=== PATIENT | female | born 1940 | race Caucasian/White ===

== ENCOUNTER 2019-08-27 09:03 | Observation (INO) ==
[2019-08-27] MEDS ORDERED: IOPAMIDOL 100 ML BOTTLE IV ONE (09:04)
[2019-08-27] MEDS ORDERED: LIDOCAINE 1% 20 ML VIAL SQ ONE (09:04)
[2019-08-27] MEDS ORDERED: IPRATROPIUM/ALBUTEROL 3 ML AMPUL.NEB NEB ONE ×2 (09:14→09:46)
--- NOTE | 2019-08-27 09:46 | Emergency Department Note ---
SOB HPI - General Chief Complaint: Shortness of Breath/Dyspnea Stated Complaint: shortness of breath Time Seen by Provider: 08/27/19 09:27 Source: patient Mode of arrival: EMS Limitations: no limitations - History of Present Illness 79-year-old female patient presents emergency complaint of ongoing and severe shortness of breath. Patient tells me she has been suffering from breathing issues for the last month. She was with pneumonia versus COPD exacerbation. She was started on oral antibiotics and oral corticosteroids. A review of her recent primary care note on 08/20 indicates that she was improving. Her primary care provider continued her on her nebulizer, antibiotics, and steroids. Unfortunately, she worsened and was seen in [facility]'s emergency department on 08/24. During that time she was again diagnosed COPD exacerbation with potential ongoing pneumonia. She was restarted on azithromycin and continued on corticosteroids. Today, she was undergoing a pulmonary function test and was referred down to the emergency department when she was unable to form this. She tells me her breathing is "not good" but unchanged. She has a [id number] history of smoking but tells me "I have not smoked in days". She denies systemic fever, sweats, chills. She denies/congestion runny nose. She admits to productive cough producing "white" colored sputum. She describes her dyspnea is worsening with any form of activity. Currently, resting on the emergency room gurney, she is breathing "okay". She denies retrosternal chest pain or palpitations. She d enies abdominal pain, nausea, vomiting, or diarrhea. She denies lower extremity edema. She denies PND or orthopnea. She denies focal weakness. A review of her active problems shows the following: Blepharitis, gastritis, elbow strain, lumbar strain, UTI, left epicondylitis, left shoulder impingement, right hip arthralgia, chronic tobacco use, essential hypertension, hyperlipidemia. - Related Data Home Medications Medication Instructions Recorded Confirmed Azithromycin 500 mg PO DAILY 08/27/19 08/27/19 predniSONE [Prednisone] 10 mg PO [facility] 08/27/19 08/27/19 tiZANidine [Zanaflex] 4 mg PO TID PRN 08/27/19 08/27/19 Previous Rx's Medication Instructions Recorded diltiazem HCl 120 mg 120 mg PO QDAY PRN #30 cap 02/10/19 capsule,extended release 24 hr albuterol sulfate 90 mcg/actuation See Rx Instructions .ROUTE 03/30/19 aerosol inhaler .COMPLEX #18 gram omeprazole 20 mg capsule,delayed 20 mg PO QDAY #90 cap 04/30/19 release ramipril 10 mg capsule 10 mg PO QDAY #90 cap 07/30/19 albuterol sulfate 2.5 mg/3 mL 2.5 mg INHALATION Q4H PRN #90 ml 08/17/19 (0.083 %) solution for nebulization nebulizer accessories See Rx Instructions .ROUTE 08/17/19 .MEDSUPPLY #1 each nebulizer and compressor See Rx Instructions .ROUTE 08/17/19 .MEDSUPPLY #1 each hydrocodone 10 mg-acetaminophen 1 tab PO QID #112 tab 08/24/19 325 mg tablet Wheelchair #1 ea 08/25/19 Allergies Allergy/AdvReac Type Severity Reaction Status Date / Time hydrochlorothiazide Allergy Intermediate Palpitation Verified 08/20/19 15:11 s atorvastatin [From Lipitor] AdvReac Intermediate Cramping Verified 08/20/19 15:11 of the Muscles ezetimibe [From Vytorin] AdvReac Intermediate Cramping Verified 08/20/19 15:11 of the Muscles Penicillins AdvReac Intermediate Anxiety Verified 08/20/19 15:11 simvastatin [From Vytorin] AdvReac Intermediate Cramping Verified 08/20/19 15:11 of the Muscles potassium AdvReac Mild Unknown Verified 08/20/19 15:11 prednisone AdvReac Mild Unknown Verified 08/20/19 15:11 Tizanidine AdvReac Mild cramping Verified 08/20/19 15:14 in hands in feet Review of Systems All systems ED: reviewed and negative except as stated. 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 Absent: scleral icterus, conjunctival injection ENT: Present: normal oropharynx, mucous membranes moist Neck: Present: trachea midline. Absent: lymphadenopathy, thyromegaly Chest: Present: symmetric chest wall rise Respiratory: Present: accessory muscle use, prolonged expiratory phase, decreased breath sounds. Absent: respiratory distress, rales/crackles, wheezes, stridor Cardiovascular: Present: regular rate, normal rhythm. Absent: systolic murmur, diastolic murmur Abdominal: Present: soft. Absent: distention, tenderness, guarding, rebound, rigidity, organomegaly, mass Extremities: Present: normal capillary refill. Absent: pedal edema, pretibial edema, calf tenderness Neurological: Present: alert, oriented X3 Psychiatric: Present: normal affect, normal mood Skin: Present: warm, dry. Absent: cyanosis Course Course Narrative: Patient was brought into the emergency department and a history and physical exam was performed. Laboratory studies were drawn. Patient was given DuoNeb treatment x1. Portable chest x-ray was ordered and reviewed. Radiologist read the x-ray as small bilateral pleural effusions there is a possible right hydropneumothorax. He recommended PA and lateral chest x-ray. Radiologist also mentioned bibasilar volume loss or infiltrate. Repeat chest exam did not show considerable air movement. Patient was given second DuoNeb treatment. A review of her laboratory studies show the following: CBC elevated WBC 16.8, granulocyte percent 94.1, granulocyte #15.8. Lactic acid 1.5. CMP elevated chloride 95, glucose 111, all others normal limits. Procalcitonin less than 0.10. Arterial blood gas did show pH 7.41, PCO2 43, PO2 62, HCO3 27.3. Repeat two-view chest x-ray showed small bilateral pleural effusions that are unchanged, cardiomegaly and probable pulmonary congestion, no acute pulmonary parenchymal infiltrate. Due to the patient's hypoxia and worsening respiratory status a chest CT was ordered and reviewed. Review of the CT scan report did show bilateral large pleural effusions. I discussed this case my collaborating physician (Dr. Galeas) who in turn discussed this with the radiologist. At this time patient will be set up for a ultrasound-guided thoracentesis. We will send this fluid down for laboratory studies including, culture, and cytology. Dr. Galeas went over the risks and benefits of the procedure with the patient. Patient consented to have the procedure done. Radiologist removed approximately 1.2 L of pleural fluid from the patient's chest. This was sent for culture, Gram stain, protein level, and cytology. After reviewing all the data I discussed the findings with the patient. She is needing further evaluation and work-up and likely needs hospitalized for these pleural effusions. There was a suspicious nodule found on the chest CT scan that needs further work-up. She verbalized understanding this. With this in mind, I contacted the hospitalist (Dr. Bettencourt) and explained the patient's condition to him. At this time Dr. Bettencourt has consented to receive the patient into the hospital. All further treatment decisions and modalities to be carried out by Dr. Bettencourt. Vital Signs Temperature 96.9 F L 08/27/19 09:04 Pulse Rate 88 08/27/19 09:04 Respiratory Rate 34 H 08/27/19 09:04 Blood Pressure 156/88 08/27/19 09:04 Pulse Oximetry (%) 94 08/27/19 09:04 Temperature 96.9 F L 08/27/19 09:04 Pulse Rate 96 H 08/27/19 14:45 Respiratory Rate 21 08/27/19 10:06 Blood Pressure 131/74 08/27/19 11:03 Pulse Oximetry (%) 91 08/27/19 14:45 Shortness of Breath/Dyspnea - Lab Data Lab results reviewed: Yes I reviewed the patient's lab results. Result diagrams: 08/27/19 10:00 08/27/19 10:00 Lab Results 08/27/19 08/27/19 08/27/19 Range/Units 10:00 10:00 10:00 WBC 16.8 H (4.5-11.0) K/mcL RBC 4.97 (4.00-5.20) M/mcL Hgb 13.2 (12.0-15.0) g/dL Hct 40.9 (36.0-48.0) % MCV 82.3 (80.0-100.0) fL MCH 26.5 (26.0-34.0) pg MCHC 32.2 (31.0-36.0) g/dL RDW 16.4 H (11.5-14.5) % Plt Count 322 (140-440) K/mcL MPV 9.3 (7.4-10.4) fL Gran % 94.1 H (38.0-78.0) % Lymph % (Auto) 3.2 L (15.5-49.0) % Dickinson % (Auto) 2.7 (1.0-12.0) % Eos % (Auto) 0 (0.0-7.0) % Baso % (Auto) 0 (0.0-2.0) % Gran # 15.8 H (1.8-8.0) K/mcL Lymph # (Auto) 0.5 L (1.5-4.8) K/mcL Dickinson # (Auto) 0.5 (0.1-0.9) K/mcL Eos # (Auto) 0 (0.0-0.7) K/mcL Baso # (Auto) 0 (0.0-0.3) K/mcL VBG Lactic Acid (0.5-2.0) mmol/L Sodium 133 (133-145) mmol/L Potassium 4.2 (3.3-5.1) mmol/L Chloride 95 L (96-108) mmol/L Carbon Dioxide 25 (22-30) mmol/L Anion Gap 13.0 (8-16) BUN 16 (8-23) mg/dl Creatinine 0.6 (0.6-1.1) mg/dl GFR Calculation 88 Glucose 111 H (70-105) mg/dL Calcium 9.2 (8.6-10.4) mg/dl Total Bilirubin 0.3 (0.0-1.0) mg/dL AST 21 (0-37) U/l ALT 10 (0-40) U/l Alkaline Phosphatase 95 (39-117) U/L Total Protein 6.6 (5.9-8.4) gm/dL Albumin 4.0 (3.2-5.2) gm/dL Globulin 2.6 (2.2-3.7) gm/dL Albumin/Globulin Ratio 1.5 (1.0-2.3) Procalcitonin < 0.10 (<0.10) ng/mL Fluid pH Fluid Total Protein Fluid LDH Pleural Fluid Source Pleural Color Pleural Appearance Pleural RBC /cumm Pleural Nuc Cells /cumm Pleural Neutrophils Pleural Lymphocytes Pleural Plasma Cells Pleural Macrophages Pleural Mesothelial Pleural Diff Comment Pleural Total Protein gm/dL Pleural LDH U/L 1208/27/19 08/27/19 Range/Units 10:31 13:26 13:26 WBC (4.5-11.0) K/mcL RBC (4.00-5.20) M/mcL Hgb (12.0-15.0) g/dL Hct (36.0-48.0) % MCV (80.0-100.0) fL MCH (26.0-34.0) pg MCHC (31.0-36.0) g/dL RDW (11.5-14.5) % Plt Count (140-440) K/mcL MPV (7.4-10.4) fL Gran % (38.0-78.0) % Lymph % (Auto) (15.5-49.0) % Dickinson % (Auto) (1.0-12.0) % Eos % (Auto) (0.0-7.0) % Baso % (Auto) (0.0-2.0) % Gran # (1.8-8.0) K/mcL Lymph # (Auto) (1.5-4.8) K/mcL Dickinson # (Auto) (0.1-0.9) K/mcL Eos # (Auto) (0.0-0.7) K/mcL Baso # (Auto) (0.0-0.3) K/mcL VBG Lactic Acid 1.5 (0.5-2.0) mmol/L Sodium (133-145) mmol/L Potassium (3.3-5.1) mmol/L Chloride (96-108) mmol/L Carbon Dioxide (22-30) mmol/L Anion Gap (8-16) BUN (8-23) mg/dl Creatinine (0.6-1.1) mg/dl GFR Calculation Glucose (70-105) mg/dL Calcium (8.6-10.4) mg/dl Total Bilirubin (0.0-1.0) mg/dL AST (0-37) U/l ALT (0-40) U/l Alkaline Phosphatase (39-117) U/L Total Protein (5.9-8.4) gm/dL Albumin (3.2-5.2) gm/dL Globulin (2.2-3.7) gm/dL Albumin/Globulin Ratio (1.0-2.3) Procalcitonin (<0.10) ng/mL Fluid pH 7.33 Fluid Total Protein TNP Fluid LDH TNP Pleural Fluid Source Pleural Pleural Color [place] Pleural Appearance Cloudy Pleural RBC < 18765 /cumm Pleural Nuc Cells 3243 /cumm Pleural Neutrophils Not Reportable Pleural Lymphocytes Not Reportable Pleural Plasma Cells Not Reportable Pleural Macrophages Not Reportable Pleural Mesothelial Not Reportable Pleural Diff Comment Not Reportable Pleural Total Protein gm/dL Pleural LDH U/L 08/27/19 08/27/19 08/27/19 Range/Units 13:54 13:54 13:55 WBC (4.5-11.0) K/mcL RBC (4.00-5.20) M/mcL Hgb (12.0-15.0) g/dL Hct (36.0-48.0) % MCV (80.0-100.0) fL MCH (26.0-34.0) pg MCHC (31.0-36.0) g/dL RDW (11.5-14.5) % Plt Count (140-440) K/mcL MPV (7.4-10.4) fL Gran % (38.0-78.0) % Lymph % (Auto) (15.5-49.0) % Dickinson % (Auto) (1.0-12.0) % Eos % (Auto) (0.0-7.0) % Baso % (Auto) (0.0-2.0) % Gran # (1.8-8.0) K/mcL Lymph # (Auto) (1.5-4.8) K/mcL Dickinson # (Auto) (0.1-0.9) K/mcL Eos # (Auto) (0.0-0.7) K/mcL Baso # (Auto) (0.0-0.3) K/mcL VBG Lactic Acid (0.5-2.0) mmol/L Sodium (133-145) mmol/L Potassium (3.3-5.1) mmol/L Chloride (96-108) mmol/L Carbon Dioxide (22-30) mmol/L Anion Gap (8-16) BUN (8-23) mg/dl Creatinine (0.6-1.1) mg/dl GFR Calculation Glucose (70-105) mg/dL Calcium (8.6-10.4) mg/dl Total Bilirubin (0.0-1.0) mg/dL AST (0-37) U/l ALT (0-40) U/l Alkaline Phosphatase (39-117) U/L Total Protein (5.9-8.4) gm/dL Albumin (3.2-5.2) gm/dL Globulin (2.2-3.7) gm/dL Albumin/Globulin Ratio (1.0-2.3) Procalcitonin (<0.10) ng/mL Fluid pH Fluid Total Protein TNP Fluid LDH TNP Pleural Fluid Source Pleural Color Pleural Appearance Pleural RBC /cumm Pleural Nuc Cells /cumm Pleural Neutrophils Pleural Lymphocytes Pleural Plasma Cells Pleural Macrophages Pleural Mesothelial Pleural Diff Comment Pleural Total Protein 4.1 gm/dL Pleural LDH 474 U/L - Radiology Data Radiology results reviewed: Yes I reviewed the patient's radiology results. Ordering Physician: Wil Galeas M.D. Date of Service: 08/27/19 Procedure(s): XR chest 1V portable Accession Number(s): [id number] IMPRESSION: 1. Small bilateral pleural effusions. Possible right hydropneumothorax. Recommend PA and lateral chest x-ray 2. Bibasilar volume loss or infiltrate. Ordering Physician: Wil Galeas M.D. Date of Service: 08/27/19 Procedure(s): XR chest 2V Accession Number(s): [id number] IMPRESSION: 1. Small bilateral pleural effusions, unchanged 2. Cardiomegaly and probable pulmonary congestion 3. No acute pulmonary parenchymal infiltrate Interpreted and Authenticated by: Reji El 08/27/19 Disposition Pt seen by [employer]/PA only: No (Dr. Galeas.) Clinical Impression: Pleural effusion, Pleural nodule COPD (chronic obstructive pulmonary disease) Qualifiers: COPD type: COPD with acute exacerbation Qualified Code(s): J44.1 - Chronic obstructive pulmonary disease with (acute) exacerbation Disposition: Xfer As Outpt/Obs ([facility]) Condition: Fair Additional Instructions: Patient is being admitted to the hospital under the care of Dr. Bettencourt. All further treatment decisions and modalities will be carried out by Dr. Bettencourt. Referrals: Kashmir Kennedy PA-C [Primary Care Provider] - Time of Disposition: 15:20
--- NOTE | 2019-08-27 09:53 | XRay Report ---
CLINICAL INFORMATION:COPD and smoking history. Acute dyspnea TECHNIQUE: AP portable upright chest x-ray COMPARISON: Previous chest x-ray dated 02/05/2007 FINDINGS:Small bilateral pleural effusions, left slightly larger than right. The right pleural effusion may be a hydropneumothorax although apical pneumothorax is not optimally demonstrated. Upright PA and lateral chest x-ray would be helpful if this patient is able to stand. Heart size is within normal limits. Pulmonary vascularity is mildly prominent in the upper lobes consistent with pulmonary congestion. There are bilateral, bibasilar infiltrates which may be due to volume loss. Pneumonia is possible. IMPRESSION: 1. Small bilateral pleural effusions. Possible right hydropneumothorax. Recommend PA and lateral chest x-ray 2. Bibasilar volume loss or infiltrate. Interpreted and Authenticated by: Reji El 08/27/19
[2019-08-27] MEDS ORDERED: methylPREDNISolone SOD SUCC 125 MG/2 ML VIAL IV ONE (10:02)
--- NOTE | 2019-08-27 10:26 | XRay Report ---
CLINICAL INFORMATION:Pleural effusions. Previous examination was suggestive of right hydropneumothorax TECHNIQUE: PA and lateral upright chest x-ray COMPARISON: Previous AP portable chest x-ray dated 08/27/2019. Outside chest x-rays dated 08/24/2019 and 08/14/2019. FINDINGS:Small bilateral pleural effusions are unchanged since 08/24/2019 and 08/14/2019. There is cardiomegaly. Pulmonary vascularity is prominent consistent with pulmonary congestion. Mild bibasilar atelectasis or infiltrate. Mid and upper lungs are negative. IMPRESSION: 1. Small bilateral pleural effusions, unchanged 2. Cardiomegaly and probable pulmonary congestion 3. No acute pulmonary parenchymal infiltrate Interpreted and Authenticated by: Reji El 08/27/19
[2019-08-27 10:43] LABS: Basophils # (Auto) 0 K/mcL (0.0-0.3); Basophils % (Auto) 0 % (0.0-2.0); Eosinophils # (Auto) 0 K/mcL (0.0-0.7); Eosinophils % (Auto) 0 % (0.0-7.0); Granulocytes % (Auto) 94.1 % (38.0-78.0); Hematocrit 40.9 % (36.0-48.0); Hemoglobin 13.2 g/dL (12.0-15.0); Lymphocytes # (Auto) 0.5 K/mcL (1.5-4.8); Lymphocytes % (Auto) 3.2 % (15.5-49.0); Mean Cell Volume 82.3 fL (80.0-100.0); Mean Corpuscular HGB Conc 32.2 g/dL (31.0-36.0); Mean Platelet Volume 9.3 fL (7.4-10.4); Monocytes # (Auto) 0.5 K/mcL (0.1-0.9); Monocytes % (Auto) 2.7 % (1.0-12.0); Platelet Count 322 K/mcL (140-440); RBC 4.97 M/mcL (4.00-5.20); Red Cell Distribution Width 16.4 % (11.5-14.5); WBC 16.8 K/mcL (4.5-11.0)
[2019-08-27 11:08] LABS: ALT/SGPT 10 U/l (0-40); AST/SGOT 21 U/l (0-37); Albumin/Globulin Ratio 1.5 (1.0-2.3); Alkaline Phosphatase 95 U/L (39-117); Bilirubin,Total 0.3 mg/dL (0.0-1.0); Blood Urea Nitrogen 16 mg/dl (8-23); Calcium 9.2 mg/dl (8.6-10.4); Carbon Dioxide 25 mmol/L (22-30); Globulin 2.6 gm/dL (2.2-3.7); Glomerular Filtration Rate 88; Glucose 111 mg/dL (70-105)
[2019-08-27 11:17] LABS: Chloride 95 mmol/L (96-108)
[2019-08-27] MEDS ORDERED: HYDROcodone/APAP 10/325MG TABLET PO ONE (11:55)
[2019-08-27] MEDS ORDERED: HYDROcodone/APAP 5/325MG TABLET PO ONE (11:57)
--- NOTE | 2019-08-27 12:23 | Cat Scan Report ---
CLINICAL INFORMATION: pleural effusions, shortness of breath COMPARISON: Chest x-ray dated 08/27/2019 and 08/24/2019 TECHNIQUE: Axial contrast enhanced images through the chest. Sagittally and coronally reformatted images. MIP reformatted images. 65 mLml Isovue 370 injected intravenously. FINDINGS: Lungs:Bilateral partial lower lobe collapse due to large pleural effusions. There is an 8 mm noncalcified nodule in the aerated portion of the left lower lobe. This is best identified on axial image 52/111. Follow-up CT scan recommended. Lung parenchyma is not optimally evaluated due to patient motion. Centrilobular emphysema is suspected in this patient with a long smoking history. Mediastinum, vascular:No mediastinal or detectable hilar adenopathy. There is no pulmonary embolism. Main pulmonary artery, right pulmonary artery, left pulmonary artery are negative. No lobar emboli. Thoracic aorta is negative. Heart:There is cardiomegaly. No pericardial effusion. Pleura:Moderate to large bilateral pleural effusions. No pleural-based mass identified. No septation or loculation. This is probably on the basis of cardiac decompensation. Axilla, supraclavicular regions, chest wall:No axillary adenopathy. No supraclavicular adenopathy. Musculoskeletal:No thoracic compression fractures. Sternum and ribs are negative. No lytic lesion. Upper Abdomen:Liver has a nodular contour. Cirrhosis is suspected. No focal mass. IMPRESSION: 1. Moderate to large pleural effusions. No detectable pleural based mass. No septation or loculation 2. 8 mm left lower lobe noncalcified nodule. Follow-up CT scan recommended 3. Cardiomegaly. Probable cardiac decompensation causing effusions 4. Nodular contour of the liver. Cirrhosis is possible The exam was performed using radiation dose optimization techniques including, but not limited to, automated exposure control, adjustment of the mA and/or kV according to patient size and use of iterative reconstruction technique. Interpreted and Authenticated by: Reji El 08/27/19
--- NOTE | 2019-08-27 13:09 | XRay Report ---
CLINICAL INFORMATION:Status post right thoracentesis. 1.2 L of blood-tinged fluid removed TECHNIQUE: Upright PA chest x-ray COMPARISON: Prethoracentesis chest x-ray dated 08/27/2019 FINDINGS:Significant interval decrease in right pleural effusion. There is residual blunting at the right costophrenic angle. There is no postthoracentesis pneumothorax. There is improved aeration of the right lung. No right lung consolidation or mass. Left pleural effusion is unchanged IMPRESSION: 1. Status post ultrasound-guided thoracentesis. 1.2 L right pleural fluid removed 2. No postthoracentesis pneumothorax Interpreted and Authenticated by: Reji El 08/27/19
--- NOTE | 2019-08-27 13:18 | Ultrasound Report ---
CLINICAL INFORMATION: Bilateral pleural effusions TECHNIQUE: Informed consent was obtained. We discussed the procedure as well as potential risks and complications including risk of lung collapse. Right pleural effusion was localized with ultrasound. Routine ChloraPrep skin cleansing. 1% lidocaine injected subcutaneously and deep. A 6 Thai safety centesis set was utilized. 1.2 L of blood-tinged fluid were removed. Postthoracentesis chest x-ray demonstrates no pneumothorax. COMPARISON: Previous chest x-ray and chest CT scan dated 08/27/2019 IMPRESSION: 1. Ultrasound-guided thoracentesis 2. 1.2 L of blood-tinged fluid removed from the right pleural space Interpreted and Authenticated by: Reji El 08/27/19
[2019-08-27 14:40] LABS: Appearance,Pleural Fluid CLOUDY; Color,Pleural Fluid ORANGE; Nucleated Cells,Pleural Fld 3243 /cumm; RBC,Pleural Fluid < 50000 /cumm
[2019-08-27 14:58] LABS: pH,Body Fluid 7.33
[2019-08-27 15:04] LABS: Total Protein,Pleural Fluid 4.1 gm/dL
--- NOTE | 2019-08-27 16:12 | Internal Med History&Physical ---
Medical - H&P: HPI Patient information: Note initiated : 08/27/19 at 4:03 pm Service Date, if different from initiated Date: [] Patient: Anita Tomlinson a 79 y/o F admitted on for Shortness of breath. Chief Complaint: [] Chief complaint: Shortness of breath History of present illness: Ms. Tomlinson is a 79 year old F with a known history of 50 pack year smoking, COPD who has been getting progressively short of breath over the last 1 month. Patient has had 2 ER visits and was empirically treated for pneumonia. Also was scheduled to follow-up with pulmonary for PFTs. However during today's visit she was found extremely labored and short of breath and subsequently referred to the ER for further evaluation. She denies associated fever but endorses to nonproductive cough, pleuritic chest pain on the right side after the episode of pneumonia which has since resolved. She denies headache, rash but endorses to 10 pound weight loss over the last month and a half. She denies nausea vomiting but endorses to intermittent diarrhea. Initial work-up in the ER was consistent with bilateral pleural effusion on chest CT. She underwent 1.2 L right pleural fluid tap. White count 16.8. Chemistries revealed pH 7.33, LDH 474/total protein 4.1 suggestive of exudate with mixed cells including lymphocytes macrophages and mesothelial cells and a pH of 7.33. Hospital service was consulted for further evaluation in light of persistent shortness of breath. At the time evaluation patient is alert and oriented. Her son Nico left by the time I was able to evaluate the patient. She was able to endorse history as above. She does not seem to apparent distress. Review of systems A 10 point review system was performed and is negative except was cussed above Medical - H&P: PMH Medical history: Blepharitis (Acute) Gastritis (Acute) Elbow strain (Acute) Arthralgia of right hip (Chronic) History of tobacco use (Acute) Radiculopathy of lumbar region (Acute) Lumbar disc disease (Acute) Essential hypertension (Acute) Hyperlipidemia (Acute) Surgical History History of shoulder surgery (Acute) S/P epidural steroid injection (Acute) Family History Unknown Hyperlipidemia Hypertension Brothers Acute myocardial infarction resulted in of all 3 brothers; in their 40's and 50's Father Acute myocardial infarction Social History marital status: single other: 4 children living physical activity: walking frequency: other smoking status: Current every day smoker tobacco type: cigarettes per day: 4 quit status: not considering quitting counseling given: patient declined alcohol intake frequency: does not drink substance use type: does not use Medical - H&P: Meds Home Medications Medication Instructions Recorded Confirmed Type diltiazem HCl 120 mg 120 mg PO QDAY PRN #30 cap 02/10/19 08/27/19 Rx capsule,extended release 24 hr albuterol sulfate 90 mcg/actuation See Rx Instructions .ROUTE 03/30/19 08/27/19 Rx aerosol inhaler .COMPLEX #18 gram omeprazole 20 mg capsule,delayed 20 mg PO QDAY #90 cap 04/30/19 08/27/19 Rx release ramipril 10 mg capsule 10 mg PO QDAY #90 cap 07/30/19 08/27/19 Rx albuterol sulfate 2.5 mg/3 mL 2.5 mg INHALATION Q4H PRN #90 ml 08/17/19 08/27/19 Rx (0.083 %) solution for nebulization nebulizer accessories See Rx Instructions .ROUTE 08/17/19 08/27/19 Rx .MEDSUPPLY #1 each nebulizer and compressor See Rx Instructions .ROUTE 08/17/19 08/27/19 Rx .MEDSUPPLY #1 each hydrocodone 10 mg-acetaminophen 1 tab PO QID #112 tab 08/24/19 08/27/19 Rx 325 mg tablet Azithromycin 500 mg PO DAILY 08/27/19 08/27/19 History predniSONE [Prednisone] 10 mg PO QAC 08/27/19 08/27/19 History Allergies Allergy/AdvReac Type Severity Reaction Status Date / Time atorvastatin [From Lipitor] AdvReac Mild Cramping Verified 08/28/19 09:55 of the Muscles ezetimibe [From Vytorin] AdvReac Mild Cramping Verified 08/28/19 09:55 of the Muscles hydrochlorothiazide AdvReac Mild Palpitation Verified 08/28/19 09:55 s Penicillins AdvReac Mild Anxiety Verified 08/28/19 09:55 simvastatin [From Vytorin] AdvReac Mild Cramping Verified 08/28/19 09:55 of the Muscles Tizanidine AdvReac Mild cramping Verified 08/20/19 15:14 in hands in feet Medical - H&P: Exam - Constitutional Vitals: Temp Pulse Resp BP Pulse Ox 96.9 F L 96 H 21 131/74 91 08/27/19 09:04 08/27/19 14:45 08/27/19 10:06 08/27/19 11:03 08/27/19 14:45 General appearance: no acute distress Exam: Alert and oriented able to talk in full sentences head normocephalic Oral cavity dry Eye movement symmetrical No ear nose discharge Neck no lymphadenopathy S1-S2 regular rhythm Absent breath sounds left , dull on percussion bilateral bases Abdomen soft nontender Lower extremity no cyanosis clubbing no joint swelling Skin no suspicious lesion Psych alert cooperative but anxious Neuro nonfocal Medical - H&P: Reslt - Labs CBC & Chem 7: 08/28/19 04:05 08/28/19 04:05 Labs: Short CBC 08/27/19 Range/Units 10:00 WBC 16.8 H (4.5-11.0) K/mcL Hgb 13.2 (12.0-15.0) g/dL Hct 40.9 (36.0-48.0) % Plt Count 322 (140-440) K/mcL BMP 08/27/19 10:00 Sodium 133 Potassium 4.2 Chloride 95 L Carbon Dioxide 25 BUN 16 Creatinine 0.6 Glucose 111 H Calcium 9.2 Liver Function 08/27/19 Range/Units 10:00 Total Bilirubin 0.3 (0.0-1.0) mg/dL AST 21 (0-37) U/l ALT 10 (0-40) U/l Alkaline Phosphatase 95 (39-117) U/L Albumin 4.0 (3.2-5.2) gm/dL Medical - H&P: A/P (1) COPD exacerbation Current visit: Yes Status: Acute * Acute COPD exacerbation-continue bronchodilators/inhaled steroids * Bilateral pleural effusion status post right thoracentesis. Exudate right arteria. May represent Syn-pneumonic versus malignancy versus congestive heart failure. Await Gram stain, cytology, cultures. * Dyspnea likely secondary COPD however rule out CHF. Echocardiogram. Continue supplemental oxygen/pulmonary toilet/bronchodilators. * Weight loss -initiate dietary consult/protein studies supplements. * Tobacco dependence nicotine patch * History of hypertension restart ANIYA inhibitor's/diltiazem * GERD continue PPI * Full code * Prophylaxis heparin Plan * Observation admit * bronchodilators/inhaled steroids * Thoracentesis studies * Echocardiogram * Prior medical condition management on home meds * Nutrition support/PT OT
[2019-08-27] MEDS ORDERED: ESOMEPRAZOLE 40 MG VIAL IV SCH (16:30)
[2019-08-27 16:53] LABS: Eosinophils,Pleural Fluid 2 %; Lymphocytes,Pleural Fluid 32 %; Macrophages,Pleural Fluid 25 %; Mesothelial,Pleural Fluid 32 %; Monocytes,Pleural Fluid 8 %; Neutrophils,Pleural Fluid 1 %
[2019-08-27] MEDS ORDERED: MELATONIN 3 MG TABLET PO PRN (17:14)
[2019-08-27] MEDS ORDERED: ACETAMINOPHEN 325 MG TABLET PO PRN (17:14)
[2019-08-27] MEDS ORDERED: tiZANidine 4 MG TABLET PO PRN (17:14)
[2019-08-27] MEDS ORDERED: MAGNESIUM SULFATE 2 GM/50 ML BAG IV PRN (17:14)
[2019-08-27] MEDS ORDERED: POLYETHYLENE GLYCOL 3350 17 GM PACKET PO PRN (17:14)
[2019-08-27] MEDS ORDERED: ONDANSETRON 4 MG ODT TABLET SL PRN (17:14)
[2019-08-27] MEDS ORDERED: BISACODYL 10 MG SUPP.RECT PR PRN (17:14)
[2019-08-27] MEDS ORDERED: POTASSIUM CHLORIDE 20 MEQ PACKET PO PRN (17:14)
[2019-08-27] MEDS ORDERED: ONDANSETRON 4 MG/2 ML VIAL IV PRN (17:14)
[2019-08-27] MEDS ORDERED: ACETAMINOPHEN 650 MG/65 ML BOTTLE IV PRN (17:14)
[2019-08-27] MEDS: HYDROcodone/APAP 10/325MG TABLET PO PRN (18:20)
[2019-08-27] MEDS: 0.9 % SODIUM CHLORIDE 1,000 ML IV SCH (18:21)
[2019-08-27] MEDS: LEVOFLOXACIN 750 MG/150 ML BAG IV SCH (18:22)
[2019-08-27] MEDS: BUDESONIDE 0.5 MG/2 ML AMPUL.NEB NEB SCH (19:59)
[2019-08-27] MEDS: IPRATROPIUM/ALBUTEROL 3 ML AMPUL.NEB NEB SCH ×2 (19:59→22:39)
[2019-08-27] MEDS: methylPREDNISolone SOD SUCC 125 MG/2 ML VIAL IV SCH (20:09)
[2019-08-27] MEDS: DOCUSATE SODIUM 100 MG CAPSULE PO SCH (20:09)
[2019-08-27] MEDS: HEPARIN 5,000 UNIT/ML VIAL SQ SCH (20:09)
[2019-08-27] MEDS: SENNOSIDES/DOCUSATE SODIUM 1 TAB TABLET PO SCH (20:09)
[2019-08-27] MEDS: 0.9 % SODIUM CHLORIDE 10 ML SYRINGE IV SCH (21:40)
[2019-08-28] MEDS: HYDROcodone/APAP 10/325MG TABLET PO PRN ×4 (00:04→17:53)
--- NOTE | 2019-08-28 00:45 | Emergency Department Note ---
ED Note Addendum Note Addendum: I saw this patient with Roosevelt García PA-C. I agree with his evaluation management particular I evaluated the patient myself and discussed the case with Roosevelt. I reviewed all of her studies including chest x-ray CT scan EKG etc. I consented her for thoracentesis and status post thoracentesis Roosevelt and I dis cussed admission. Patient was admitted by Dr. Bettencourt, hospitalist
[2019-08-28] MEDS: IPRATROPIUM/ALBUTEROL 3 ML AMPUL.NEB NEB SCH ×6 (04:09→22:26)
[2019-08-28 05:18] LABS: Hematocrit 37.2 % (36.0-48.0); Hemoglobin 12.1 g/dL (12.0-15.0); Mean Cell Volume 82.3 fL (80.0-100.0); Mean Corpuscular HGB Conc 32.5 g/dL (31.0-36.0); Mean Platelet Volume 9.6 fL (7.4-10.4); Platelet Count 280 K/mcL (140-440); RBC 4.52 M/mcL (4.00-5.20); Red Cell Distribution Width 16.1 % (11.5-14.5); WBC 13.7 K/mcL (4.5-11.0)
[2019-08-28] MEDS: 0.9 % SODIUM CHLORIDE 10 ML SYRINGE IV SCH ×3 (05:36→20:34)
[2019-08-28 06:17] LABS: ALT/SGPT 11 U/l (0-40); AST/SGOT 19 U/l (0-37); Albumin 3.7 gm/dL (3.2-5.2); Albumin/Globulin Ratio 1.7 (1.0-2.3); Alkaline Phosphatase 85 U/L (39-117); Bilirubin,Direct < 0.2 mg/dL (0.0-0.3); Bilirubin,Total 0.3 mg/dL (0.0-1.0); Blood Urea Nitrogen 17 mg/dl (8-23); Calcium 8.8 mg/dl (8.6-10.4); Carbon Dioxide 23 mmol/L (22-30); Chloride 96 mmol/L (96-108); Globulin 2.2 gm/dL (2.2-3.7); Glomerular Filtration Rate 84; Glucose 122 mg/dL (70-105); Lactate Dehydrogenase 201 U/L (94-250); Phosphorous 3.7 mg/dL (2.7-4.5); Triglycerides 125 mg/dl (<150); Uric Acid 3.7 mg/dL (2.5-8.0)
[2019-08-28] MEDS: BUDESONIDE 0.5 MG/2 ML AMPUL.NEB NEB SCH ×2 (07:00→19:41)
[2019-08-28 07:57] LABS: Anisocytosis 1+ (NONE SEEN); Band Neutrophils % 1 % (0-10); Lymphocytes % 3 % (15-49); Monocytes % (Manual) 6 % (1-12); Platelet Estimate NORMAL (NORMAL); RBC Morphology ABNORM (NORMAL); Segmented Neutrophils % 90 % (38-78)
[2019-08-28] MEDS: methylPREDNISolone SOD SUCC 125 MG/2 ML VIAL IV SCH ×2 (08:40→20:34)
[2019-08-28] MEDS: MULTIVIT,THER IRON,CA,FA & MIN 1 TABLET PO SCH (08:40)
[2019-08-28] MEDS: LISINOPRIL 20 MG TABLET PO SCH (08:40)
[2019-08-28] MEDS: HEPARIN 5,000 UNIT/ML VIAL SQ SCH ×2 (08:40→20:34)
[2019-08-28] MEDS: OMEPRAZOLE 20 MG CAPSULE PO SCH (08:40)
[2019-08-28] MEDS: DOCUSATE SODIUM 100 MG CAPSULE PO SCH ×2 (08:40→20:33)
[2019-08-28] MEDS: LEVOFLOXACIN 750 MG/150 ML BAG IV SCH (08:52)
[2019-08-28] MEDS: DILTIAZEM 120 MG CAP.XL.24H PO PRN (12:00)
--- NOTE | 2019-08-28 14:49 | Internal Med Progress Note ---
Medical - PN: Subj Patient information: Note initiated : 08/28/19 at 2:47 pm Service Date, if different from initiated Date: [] Patient: Anita Tomlinson a 79 y/o F admitted on 08/27/19 for Shortness of breath. Chief Complaint: [] Interval history: Ms. Tomlinson is a 79 year old F with a known history of 50 pack year smoking, COPD who has been getting progressively short of breath over the last 1 month. Patient has had 2 ER visits and was empirically treated for pneumonia. Also was scheduled to follow-up with pulmonary for PFTs. However during today's visit she was found extremely labored and short of breath and subsequently referred to the ER for further evaluation. She denies associated fever but endorses to nonproductive cough, pleuritic chest pain on the right side after the episode of pneumonia which has since resolved. She denies headache, rash but endorses to 10 pound weight loss over the last month and a half. She denies nausea vomiting but endorses to intermittent diarrhea. Initial work-up in the ER was consistent with bilateral pleural effusion on chest CT. She underwent 1.2 L right pleural fluid tap. White count 16.8. Chemistries revealed pH 7.33, LDH 474/total protein 4.1 suggestive of exudate with mixed cells including lymphocytes macrophages and mesothelial cells and a pH of 7.33. Hospital service was consulted for further evaluation in light of persistent shortness of breath. At the time evaluation patient is alert and oriented. Her son Nico left by the time I was able to evaluate the patient. She was able to endorse history as above. She does not seem to apparent distress. 08/28-patient doing well and able to breathe much better. On room air. Denies pleuritic chest pain, no overnight events. No concerns per staff. No fever chills nausea vomiting. 2 sons at bedside. Discussed CT findings including 8 mm nodule and bilateral pleural effusion. Await echo findings. Will continue treatment chronic bronchodilators/pleural fluid studies and await echocardiogram results. Patient will need outpatient pulmonary function test. Counseled on smoking cessation. White count down from 16.8-13.7. Continue Levaquin/bronchodilators and steroids. - Constitutional Vitals: Vital Signs Temp Pulse Resp BP Pulse Ox 97.9 F 104 H 18 148/72 94 08/28/19 12:00 08/28/19 11:42 08/28/19 12:00 08/28/19 08:00 08/28/19 12:00 Period Temp Pulse Resp BP Sys/Duffy Pulse Ox Last 24 Hr 97.2 F-98.0 F 87-108 14-20 110-148/68-81 92-95 Intake and Output 08/28/19 08/28/19 08/28/19 05:59 13:59 21:59 Intake Total 815 1200 Output Total 800 350 Balance 15 850 Intake & Output: Intake & Output 08/28/19 08/28/19 08/28/19 05:59 13:59 21:59 Intake Total 815 1200 Output Total 800 350 Balance 15 850 Intake: IV 215 Oral 600 1200 Output: Void Amount 800 350 Other: Meal Lunch Percent of Meal Consumed 100% Feeding Ability Independent Urine Appearance Clear Clear Urine Color Pale Pale Urine Odor Strong Normal # Voids 1 General appearance: no acute distress Exam: Diminished breath sounds bilateral bases Alert oriented Nonlabored breathing No anxiety Medical - PN: Obj Da - Labs CBC & Chem 7: 08/28/19 04:05 08/28/19 04:05 Labs: Abnormal Lab Results 08/28/19 08/28/19 08/27/19 04:05 04:05 10:00 WBC 13.7 H RDW 16.1 H Gran % Lymph % (Auto) Gran # Lymph # (Auto) Seg Neutrophils % 90 H Lymphocytes % 3 L RBC Morphology Abnorm A Anisocytosis 1+ A Sodium 132 L Chloride 95 L Glucose 122 H 111 H GGT 55 H 08/27/19 10:00 WBC 16.8 H RDW 16.4 H Gran % 94.1 H Lymph % (Auto) 3.2 L Gran # 15.8 H Lymph # (Auto) 0.5 L Seg Neutrophils % Lymphocytes % RBC Morphology Anisocytosis Sodium Chloride Glucose GGT Meds: Medications Acetaminophen (Tylenol) 650 mg PO Q4-6HP PRN; Protocol PRN Reason: Per Pain Protocol/Fever > 101 Hydrocodone Bitart/Acetaminophen ([place] 10/325mg) 1 tab PO QIDP PRN; Protocol PRN Reason: Pain Last Admin: 08/28/19 12:00 Dose: 1 tab Documented by: Albuterol/Ipratropium (Duoneb) 3 ml NEB Q4HRT JUNG Last Admin: 08/28/19 11:37 Dose: 3 ml Documented by: Bisacodyl (Dulcolax) 10 mg AR Q2-3DAYS PRN PRN Reason: Constipation Budesonide (Pulmicort) 0.5 mg NEB Q12 [facility] Last Admin: 08/28/19 07:00 Dose: 0.5 mg Documented by: Diltiazem HCl (Cardizem Cd) 120 mg PO QDAY PRN PRN Reason: anxiety Last Admin: 08/28/19 12:00 Dose: 120 mg Documented by: Docusate Sodium (Colace) 100 mg PO BID [facility] Last Admin: 08/28/19 08:40 Dose: 100 mg Documented by: Esomeprazole Magnesium (Nexium) 20 mg IV ONCE [facility] Last Admin: 08/27/19 16:26 Dose: 20 mg Documented by: Heparin Sodium (Porcine) (Heparin) 5,000 unit SQ Q12 [facility] Last Admin: 08/28/19 08:40 Dose: 5,000 unit Documented by: Sodium Chloride (Sodium Chloride 0.9%) 1,000 mls @ 50 mls/hr IV .Q20H [facility] Stop: 08/30/19 05:13 Last Admin: 08/27/19 18:21 Dose: 50 mls/hr Documented by: Acetaminophen (Ofirmev) 650 mg in 65 mls @ 130 mls/hr IV Q6HP PRN; Protocol PRN Reason: Per Pain Protocol/Fever > 101 Last Infusion: 08/28/19 01:40 Dose: Infused Documented by: Magnesium Sulfate (Magnesium Sulfate) 2 gm in 50 mls @ 50 mls/hr IV UD PRN PRN Reason: MG = or < 1.7 Levofloxacin (Levaquin) 750 mg in 150 mls @ 100 mls/hr IV Q24H [facility]; Protocol Last Admin: 08/28/19 08:52 Dose: 100 mls/hr Documented by: Iron Carb/Multivit/Instrumentation Engineering Technician/Folic Acid (Multivitamin W/Minerals) 1 tab PO DAILY [facility] Last Admin: 08/28/19 08:40 Dose: 1 tab Documented by: Lisinopril (Zestril) 20 mg PO DAILY [facility] Last Admin: 08/28/19 08:40 Dose: 20 mg Documented by: Melatonin (Melatonin 3mg Tablet) 3 mg PO HSP PRN PRN Reason: Insomnia Last Admin: 08/27/19 20:09 Dose: 3 mg Documented by: Methylprednisolone Sodium Succinate (Solu-Medrol) 60 mg IV Q12 [facility] Last Admin: 08/28/19 08:40 Dose: 60 mg Documented by: Omeprazole (Prilosec) 20 mg PO QAMAC [facility] Last Admin: 08/28/19 08:40 Dose: 20 mg Documented by: Ondansetron HCl (Zofran Odt) 4 mg SL Q4-6HP PRN; Protocol PRN Reason: Nausea And Vomiting Last Admin: 08/28/19 12:00 Dose: 4 mg Documented by: Ondansetron HCl (Zofran) 4 mg IV Q4-6HP PRN; Protocol PRN Reason: Nausea And Vomiting Polyethylene Glycol (Miralax) 17 gm PO DAILYP PRN PRN Reason: Constipation Potassium Chloride (Klor-Con) 40 meq PO DAILYP PRN PRN Reason: K+ < 3.5 Senna/Docusate Sodium (Senna Plus Tablet) 1 tab PO HS [facility] Last Admin: 08/27/19 20:09 Dose: 1 tab Documented by: Sodium Chloride (Saline Flush) 10 ml IV Q8 [facility] Last Admin: 08/28/19 05:36 Dose: Not Given Documented by: Medical - PN: A/P - Time Spent With Patient Total time spent is greater than 50% in coordination of care (as documented) at patient's floor/unit and/or counseling patient: 25 - 35 minutes (1) COPD exacerbation Status: Acute Assessment and plan: * Acute COPD exacerbation-continue bronchodilators/inhaled steroids * Bilateral exudative pleural effusion status post right thoracentesis. Suspect Syn-pneumonic versus malignancy versus congestive heart failure. Await Gram stain, cytology, cultures and echo results. * Dyspnea likely secondary COPD/bilateral pleural effusion. Await echocardiogram. Continue supplemental oxygen/pulmonary toilet/bronchodilators. Continue PT OT * Weight loss -initiate dietary consult/protein studies supplements. * Tobacco dependence nicotine patch * History of hypertension continue ANIYA inhibitor's/diltiazem * GERD continue PPI * Full code * Prophylaxis heparin Plan * Continue PT OT/nutrition support * Continue bronchodilators/inhaled steroids * Await echocardiogram/thoracentesis studies * Pre-existing medical condition management on home meds * Nutrition support/PT OT Current Visit: Yes
[2019-08-28] MEDS: 0.9 % SODIUM CHLORIDE 1,000 ML IV SCH (15:42)
[2019-08-28] MEDS ORDERED: traZODone HCL 50 MG TABLET PO PRN (20:11)
[2019-08-28] MEDS ORDERED: traZODone HCL 50 MG TABLET ONE (20:21)
[2019-08-28] MEDS: SENNOSIDES/DOCUSATE SODIUM 1 TAB TABLET PO SCH (20:33)
[2019-08-29] MEDS: IPRATROPIUM/ALBUTEROL 3 ML AMPUL.NEB NEB SCH ×3 (04:00→11:08)
[2019-08-29] MEDS: 0.9 % SODIUM CHLORIDE 10 ML SYRINGE IV SCH (05:53)
[2019-08-29 06:31] LABS: Hematocrit 37.7 % (36.0-48.0); Hemoglobin 12.3 g/dL (12.0-15.0); Mean Corpuscular HGB Conc 32.5 g/dL (31.0-36.0); Mean Platelet Volume 9.5 fL (7.4-10.4); Platelet Count 314 K/mcL (140-440); RBC 4.54 M/mcL (4.00-5.20); Red Cell Distribution Width 15.8 % (11.5-14.5); WBC 15.9 K/mcL (4.5-11.0)
[2019-08-29] MEDS ORDERED: FUROSEMIDE 20 MG/2 ML VIAL IV ONE (07:04)
[2019-08-29] MEDS: OMEPRAZOLE 20 MG CAPSULE PO SCH (07:07)
[2019-08-29] MEDS: HYDROcodone/APAP 10/325MG TABLET PO PRN ×2 (07:07→12:12)
[2019-08-29] MEDS: BUDESONIDE 0.5 MG/2 ML AMPUL.NEB NEB SCH (07:10)
[2019-08-29 07:25] LABS: ALT/SGPT 9 U/l (0-40); AST/SGOT 20 U/l (0-37); Albumin 3.4 gm/dL (3.2-5.2); Albumin/Globulin Ratio 1.4 (1.0-2.3); Alkaline Phosphatase 76 U/L (39-117); Bilirubin,Direct < 0.2 mg/dL (0.0-0.3); Bilirubin,Total 0.2 mg/dL (0.0-1.0); Blood Urea Nitrogen 16 mg/dl (8-23); Calcium 9.2 mg/dl (8.6-10.4); Carbon Dioxide 21 mmol/L (22-30); Chloride 97 mmol/L (96-108); Globulin 2.4 gm/dL (2.2-3.7); Glomerular Filtration Rate 84; Glucose 119 mg/dL (70-105); Lactate Dehydrogenase 227 U/L (94-250); Phosphorous 3.7 mg/dL (2.7-4.5); Triglycerides 151 mg/dl (<150); Uric Acid 3.6 mg/dL (2.5-8.0)
--- NOTE | 2019-08-29 07:45 | Discharge Summary ---
Medical - DS: Prov Patient information: Note initiated : 08/29/19 at 7:42 am Service Date, if different from initiated Date: [] Patient: Anita Tomlinson 79 y/o F admitted on 08/27/19 for Shortness of breath. Chief Complaint: [] Date of admission: 08/27/19 17:06 Discharge date: 08/29/19 Primary care physician: Kashmir Kennedy Consults: 08/27/19 15:03 Consult to Physician [CONS] Stat Comment: Consulting Provider: Hector Diane Reason For Exam: Physician to Consult Medical - DS: Meds - Discharge Medications Prescriptions: Cefdinir 300 mg PO BID #10 cap Transmission Status: Pending to [facility] predniSONE [Deltasone] 40 mg PO DAILY #10 tab Transmission Status: Pending to [facility] Levofloxacin [Levaquin] 750 mg PO DAILY #5 tab Transmission Status: Pending to [facility] Active and Home Medications: Home Medications diltiazem HCl 120 mg capsule,extended release 24 hr 120 mg PO QDAY PRN #30 cap 02/10/19 [Rx Confirmed 08/27/19 Last Taken 08/26/19 08:00] albuterol sulfate 90 mcg/actuation aerosol inhaler See Rx Instructions .ROUTE .COMPLEX #18 gram 03/30/19 [Rx Confirmed 08/27/19 Last Taken Unknown] omeprazole 20 mg capsule,delayed release 20 mg PO QDAY #90 cap 04/30/19 [Rx Confirmed 08/27/19 Last Taken 08/26/19 07:00] ramipril 10 mg capsule 10 mg PO QDAY #90 cap 07/30/19 [Rx Confirmed 08/27/19 Last Taken Unknown] albuterol sulfate 2.5 mg/3 mL (0.083 %) solution for nebulization 2.5 mg INHALATION Q4H PRN #90 ml 08/17/19 [Rx Confirmed 08/27/19 Last Taken 08/26/19] nebulizer accessories See Rx Instructions .ROUTE .MEDSUPPLY #1 each 08/17/19 [Rx Confirmed 08/27/19 Last Taken Unknown] nebulizer and compressor See Rx Instructions .ROUTE .MEDSUPPLY #1 each 08/17/19 [Rx Confirmed 08/27/19 Last Taken Unknown] hydrocodone 10 mg-acetaminophen 325 mg tablet 1 tab PO QID #112 tab 08/24/19 [Rx Confirmed 08/27/19 Last Taken 08/27/19 12:00] Cefdinir 300 mg PO BID #10 cap 08/29/19 [Rx Last Taken Unknown] Levofloxacin [Levaquin] 750 mg PO DAILY #5 tab 08/29/19 [Rx Last Taken Unknown] predniSONE [Deltasone] 40 mg PO DAILY #10 tab 08/29/19 [Rx Last Taken Unknown] Medical - DS: Hosp Hospital Course: Discharge diagnosis * Acute COPD exacerbation-continue bronchodilators/oral prednisone/antibiotic coverage for additional 5 days. Recommend smoking cessation * Bilateral exudative pleural effusion status post right thoracentesis. Cultures negative so far. Cytology pending. Gram stain negative. No evidence of CHF on echocardiogram. Low-dose diuretics. Recommend follow-up with primary care physician in 7 to 10 days for repeat chest imaging and follow-up on cytology results. High probability malignancy in the setting of active smoking. * Dyspnea likely secondary COPD/bilateral pleural effusion. Echocardiogram normal EF. No evidence of CHF. Clinically resolved. * Weight loss -continue protein calorie supplements. * Tobacco dependence counseled on tobacco cessation * History of hypertension continue ANIYA inhibitor's/diltiazem * GERD continue PPI Brief hospital course Ms. Tomlinson is a 79 year old F with a known history of 50 pack year smoking, COPD who has been getting progressively short of breath over the last 1 month. Patient has had 2 ER visits and was empirically treated for pneumonia. Also was scheduled to follow-up with pulmonary for PFTs. However during today's visit she was found extremely labored and short of breath and subsequently referred to the ER for further evaluation. She denies associated fever but endorses to nonproductive cough, pleuritic chest pain on the right side after the episode of pneumonia which has since resolved. She denies headache, rash but endorses to 10 pound weight loss over the last month and a half. She denies nausea vomiting but endorses to intermittent diarrhea. Initial work-up in the ER was consistent with bilateral pleural effusion on chest CT. She underwent 1.2 L right pleural fluid tap. White count 16.8. Chemistries revealed pH 7.33, LDH 474/total protein 4.1 suggestive of exudate with mixed cells including lymphocytes macrophages and mesothelial cells and a pH of 7.33. Hospital service was consulted for further evaluation in light of persistent shortness of breath. At the time evaluation patient is alert and oriented. Her son Nico left by the time I was able to evaluate the patient. She was able to endorse history as above. She does not seem to apparent distress. 08/28-patient doing well and able to breathe much better. On room air. Denies pleuritic chest pain, no overnight events. No concerns per staff. No fever chills nausea vomiting. 2 sons at bedside. Discussed CT findings including 8 mm nodule and bilateral pleural effusion. Await echo findings. Will continue treatment chronic bronchodilators/pleural fluid studies and await echocardiogram results. Patient will need outpatient pulmonary function test. Counseled on smoking cessation. White count down from 16.8-13.7. Continue Levaquin/bronchodilators and steroids. 08/29-patient doing well. Pleural fluid cytology pending. Clinically improved. Feels a lot better. Continue diuretics/antibiotic coverage and oral steroids. Recommend smoking cessation. Recommend follow-up with primary care physician 5 to 7 days for repeat chest imaging/cytology results follow-up. Discharge diagnosis: . - Time Spent with Patient Total time spent providing and/or coordinating discharge services: Greater than 30 minutes Medical - DS: Exam - Constitutional Vitals: Vital Signs Temp Pulse Pulse Resp BP BP Pulse Ox 08/29/19 07:38 97.8 F 71 16 113/62 95 08/29/19 06:48 92 H 14 92 08/29/19 04:00 98.2 F 78 20 118/64 93 08/29/19 00:00 98.5 F 98 H 20 113/60 93 08/28/19 22:28 87 18 08/28/19 19:43 93 H 18 93 08/28/19 18:29 97.8 F 92 H 20 93/52 94 08/28/19 16:00 98.3 F 95 H 18 118/68 93 08/28/19 15:06 92 H 15 96 08/28/19 12:00 97.9 F 18 94 08/28/19 11:42 98 H 15 95 08/28/19 08:15 104 H 20 94 08/28/19 08:00 97.7 F 18 148/72 94 Intake and Output 08/28/19 08/29/19 08/29/19 21:59 05:59 13:59 Intake Total 1240 300 Output Total 175 775 250 Balance 9932 -620 -324 Intake: IV 1000 Sodium Chloride 0.9% 1,000 ml @ 1000 50 mls/hr IV .Q20H [facility] Rx#: [id number] Oral 240 300 Output: Void Amount 175 775 250 Other: Meal Dinner Percent of Meal Consumed 50% Feeding Ability Independent Urine Appearance Clear Clear Clear Urine Color Pale Bright Yellow Bright Yellow Urine Odor Normal Normal Weight 142 lb 4.8 oz Medical - DS: Data Labs on day of discharge: Labs from last 24 hours 08/29/19 08/29/19 08/28/19 04:18 04:18 04:05 WBC 15.9 H RBC 4.54 Hgb 12.3 Hct 37.7 MCV 83.0 MCH 27.0 MCHC 32.5 RDW 15.8 H Plt Count 314 MPV 9.5 Total Counted Pending 100 Seg Neutrophils % 90 H Band Neutrophils % Not Reportable 1 Lymphocytes % 3 L Monocytes % (Manual) 6 Platelet Estimate Pending Normal RBC Morphology Pending Abnorm A Anisocytosis 1+ A Sodium 133 Potassium 4.7 Chloride 97 Carbon Dioxide 21 L Anion Gap 15.0 BUN 16 Creatinine 0.7 GFR Calculation 84 Glucose 119 H Uric Acid 3.6 Calcium 9.2 Phosphorus 3.7 Magnesium 2.2 Total Bilirubin 0.2 Direct Bilirubin < 0.2 GGT 52 H AST 20 ALT 9 Alkaline Phosphatase 76 Lactate Dehydrogenase 227 Total Protein 5.8 L Albumin 3.4 Globulin 2.4 Albumin/Globulin Ratio 1.4 Triglycerides 151 H Preliminary micro results at discharge 08/27/19 14:02 Body Fluid Culture - Preliminary Pleural Fluid Medical - DS: A/P - Patient/Caregiver Discharge Instructions Activity: increase activity as tolerated Diet: Regular Diet Additional Instructions: Follow-up primary care physician in 7 to 10 days for repeat imaging/pleural fluid cytology results follow-up Continue antibiotics additional 5 days continue oral steroids for additional 4 days Refrain from smoking Discussed risk of antibiotics including C. difficile/other adverse reaction. Advised return to ER if worsening shortness of breath, pleuritic chest pain fever noted Prescriptions: Cefdinir 300 mg PO BID #10 cap [facility] predniSONE [Deltasone] 40 mg PO DAILY #10 tab Transmission Status: Pending to [facility] Levofloxacin [Levaquin] 750 mg PO DAILY #5 tab Transmission Status: Pending to [email or web address] - Problem Maintenance (1) COPD exacerbation Status: Acute - Follow up Plan Follow up with: Kashmir Kennedy PA-C [Primary Care Provider] - Disposition: Home, Self-Care Prognosis: Fair Rehab Potential: Fair I certify that the patient requires SNF services: No Overall status at discharge: patient is progressing back to baseline
[2019-08-29 07:49] LABS: Lymphocytes % 7 % (15-49); Monocytes % (Manual) 4 % (1-12); Platelet Estimate NORMAL (NORMAL); RBC Morphology NORMAL (NORMAL); Segmented Neutrophils % 89 % (38-78)
[2019-08-29] MEDS: HEPARIN 5,000 UNIT/ML VIAL SQ SCH (10:01)
[2019-08-29] MEDS: DOCUSATE SODIUM 100 MG CAPSULE PO SCH (10:01)
[2019-08-29] MEDS: LEVOFLOXACIN 750 MG/150 ML BAG IV SCH (10:01)
[2019-08-29] MEDS: DILTIAZEM 120 MG CAP.XL.24H PO PRN (10:02)
[2019-08-29] MEDS: LISINOPRIL 20 MG TABLET PO SCH (10:02)
[2019-08-29] MEDS: MULTIVIT,THER IRON,CA,FA & MIN 1 TABLET PO SCH (10:02)
[2019-08-29] MEDS: methylPREDNISolone SOD SUCC 125 MG/2 ML VIAL IV SCH (10:02)
--- NOTE | 2019-08-29 10:31 | XRay Report ---
CLINICAL INFORMATION:Dyspnea TECHNIQUE: AP portable semiupright chest x-ray COMPARISON: Previous postthoracentesis chest x-ray dated 08/27/2019. Prior examinations dated 08/27/2019, 08/14/2019, 12/01/2012 FINDINGS:Slight interval increase in right pleural effusion since the postthoracentesis chest x-ray. Moderate left pleural effusion is essentially unchanged since 08/27/2019. No new pulmonary parenchymal infiltrate or mass. Left lung base is poorly visualized due to overlying fluid. There is cardiomegaly. Pulmonary vascularity is unremarkable without evidence for pulmonary edema. IMPRESSION: 1. Slight interval increase in right pleural effusion 2. Moderate left effusion is essentially unchanged since 08/27/2019. Interpreted and Authenticated by: Reji El 08/29/19
[2019-08-29] MEDS ORDERED: LEVOFLOXACIN 750 MG TABLET PO ONE (10:42)
== END 2019-08-29 14:35 | disposition home or self-care (01) ==
LOC: MEDSUR 09:03 → ED 09:03 → MEDSUR 17:06
PROVIDERS: ADMIT Internal Medicine; ATTEND Internal Medicine